=== PATIENT | male | born 2000 | race Caucasian/White ===

== ENCOUNTER 2022-08-05 12:50 | Emergency (ER) | payer MEDICAID, SELFPAY ==
[2022-08-05 13:04] VITALS: BP 131/81; PULSE 79; RESP 18; TEMP 37.4; O2SAT 97; BMI 24.7
--- NOTE | 2022-08-05 15:35 | ED.GENADULT ---
HPI - General Adult General Date Seen: 08/05/22 Chief complaint: Nausea/Vomiting Stated complaint: Vomiting, diarrhea Time Seen by Provider: 08/05/22 15:21 Source: patient History of Present Illness HPI narrative: Patient is a 22-year-old male who presents for help with opioid withdrawal symptoms. He tells me that he has a longstanding history of opioid use, typically oxycodone, but said that he had gone to treatment and had been sober for 4 years. Most recently, he had been doing construction work and had been having difficulty with back pain. Therefore he started using oxycodone again which he buys off the street. On Tuesday, he stopped using cold turkey, and has been having difficulty with abdominal cramping, nausea, vomiting, difficulty sleeping, diarrhea. He moved from [facility] to [place] and is staying with his grandparents, who do not know about his opioid use. He has used methadone and Suboxone in the past, typically using a friend's medications to manage withdrawal symptoms, but has not had access to those. He smokes marijuana regularly, he says he has a medical prescription for that related to his PTSD. He denies regular alcohol use. Related Data Home Medications Medication Instructions Recorded Confirmed clonazepam 1 mg tablet 1 mg PO DAILY PRN 08/05/22 08/05/22 venlafaxine 150 mg 150 mg PO DAILY 08/05/22 08/05/22 capsule,extended release 24 hr Previous Rx's Medication Instructions Recorded buprenorphine 8 mg-naloxone 2 mg 2 film buccal Q24H #6 ea 08/05/22 sublingual film (Suboxone) buprenorphine 8 mg-naloxone 2 mg 2 film buccal Q24H #6 ea 08/05/22 sublingual film (Suboxone) Allergies Allergy/AdvReac Type Severity Reaction Status Date / Time No Known Drug Allergies Allergy Verified 08/05/22 13:12 Review of Systems Status of ROS: Reports: 10 or more systems reviewed and unremarkable except as noted in History and below PFSH PFS Social History Smoking Status: Current every day smoker Do you use any of these nicotine containing products: None Second hand tobacco smoke exposure: Yes How often do you have a drink containing alcohol: monthly or less How many standard drinks containing alcohol do you have on a typical day: 7 to 9 How often do you have six or more drinks on one occasion: Less than monthly AUDIT-C Alcohol total score: 5 Non-prescribed substance use: marijuana (any form) and opiods/painkillers Non-prescribed substance use details: withdrawing from fentanyl. last used Tuesday service: No Exam Narrative: Exam Narrative: Vital signs as noted above. In general, an alert, well-appearing patient. Head: Normocephalic, atraumatic. Eyes: Pupils are equal reactive. Extraocular movements are full. Conjunctivae are normal. ENT: Mucous membranes are moist. Throat is normal. Neck: Supple without lymphadenopathy. Heart: Regular rate and rhythm. No murmur or rub. Lungs: Clear bilaterally. No increased work of breathing, crackles or wheezes. Abdomen: Soft and nontender. No organomegaly. Extremities: Well perfused. No edema. No calf tenderness. Pulses intact. Neurologic: Patient is alert and oriented to person and place. Speech is fluent. Face is symmetric. Moves all extremities equally. Affect: Normal. Skin: Warm and dry. Well perfused. Const: Vital Signs, click to edit/add: Vital Signs - 24 hr 08/05/22 13:04 08/05/22 16:06 Temperature 99.3 F Pulse Rate [Right Pulse Oximeter] 79 73 Respiratory Rate 18 18 Blood Pressure [Ri ght Upper Arm] 131/81 129/74 Pulse Oximetry 97 98 Oxygen Delivery Me thod Room Air Room Air Documenting provider has reviewed patient's vital signs: yes Course Course Hospital Course: Exam is benign. We will place an IV, give some Benadryl and Zofran as well as fluids. He is feeling better after treatment here in is eager to go home. I did give him a 3 day supply of Suboxone, we have had him fill out the form for [facility] and will try to help him get set up with the clinic for sustained Suboxone therapy. Vital Signs Vital signs: Initial Vital Signs Temperature 99.3 F 08/05/22 13:04 Temperature Source Temporal Artery Scan 08/05/22 13:04 Pulse Rate 79 08/05/22 13:04 Respiratory Rate 18 08/05/22 13:04 Blood Pressure 131/81 08/05/22 13:04 Blood Pressure Mean 97 08/05/22 13:04 Blood Pressure Position Sitting 08/05/22 13:04 Pulse Oximetry 97 08/05/22 13:04 Oxygen Delivery Method 08/05/22 13:04 Vital Signs Temperature 99.3 F 08/05/22 13:04 Pulse Rate 79 08/05/22 13:04 Respiratory Rate 18 08/05/22 13:04 Blood Pressure 131/81 08/05/22 13:04 Pulse Oximetry 97 08/05/22 13:04 Oxygen Delivery Method 08/05/22 13:04 Temperature 99.3 F 08/05/22 13:04 Pulse Rate 73 08/05/22 16:06 Respiratory Rate 18 08/05/22 16:06 Blood Pressure 129/74 08/05/22 16:06 Pulse Oximetry 98 08/05/22 16:06 Oxygen Delivery Method 08/05/22 16:06 Discharge Plan Discharge Clinical Impression: Acute opioid withdrawal Patient Disposition: Home, Self-Care Condition: Improved Instructions: Opioid Withdrawal (ED) Additional Instructions: I gave you a 3 day supply of Suboxone. [facility] support team should contact you tomorrow so that we can get you hooked up with a clinic for ongoing support. Prescriptions: New buprenorphine-naloxone [Suboxone] 8-2 mg film 2 film buccal Q24H Qty: 6 0RF Rx Instructions: place 1 film on inside of (each) cheek buprenorphine-naloxone [Suboxone] 8-2 mg film 2 film buccal Q24H Qty: 6 0RF Rx Instructions: place 1 film on inside of (each) cheek No Action venlafaxine 150 mg capsule,extended release 24hr 150 mg PO DAILY clonazepam 1 mg tablet 1 mg PO DAILY PRN Label Comments: TAKE 1 TABLET BY MOUTH EVERY DAY NEEDED Follow Up/Referrals: Provider,Not a Local [Primary Care Provider] - Stand [facility]one [facility]
[2022-08-05 16:06] VITALS: BP 129/74; PULSE 73; RESP 18; O2SAT 98
[2022-08-05] MEDS: 0.9 % SODIUM CHLORIDE 1000 ml 1,000 ML IV (16:14)
[2022-08-05] MEDS: diphenhydrAMINE 50 MG/ML inj 25 MG IVP (16:19)
[2022-08-05] MEDS: ONDANSETRON 2 MG/ML inj 4 MG IVP (16:21)
--- NOTE | 2022-08-05 18:04 | ED.NURSE ---
attempted to fax times 2 the [facility] referral form and this did not go through. attempted to call-busy. attempted to e mail info. would not send. will call in the am.
--- NOTE | 2022-08-06 14:32 | ED.NURSE ---
was able to fax the referral to [facility] at [phone]. spoke to selena clayton. she will get us updated forms.
== END 2022-08-05 17:15 | disposition home or self-care (01) ==
PROVIDERS: Emergency Provider Emergency Medicine
DX: F11.13 Opioid abuse with withdrawal (principal)
CPT/HCPCS: 96374; 96375; 99283; 99284; J1200; J2405; J7030